=== PATIENT | female | born 1950 | race Caucasian/White ===

== ENCOUNTER → 2017-09-27 | Outpatient (CLI) | payer OTHER, MEDICARE | LOC: BMCIMAGING 09:58 | PROVIDERS: ATTEND Physician Assistant | DX: M25.851 Other specified joint disorders, right hip (principal); M16.11 Unilateral primary osteoarthritis, right hip ==

== ENCOUNTER → 2017-10-01 | Outpatient (CLI) | payer OTHER | LOC: FIMAGING 11:49 | PROVIDERS: ATTEND Orthopaedic Surgery | DX: Z01.818 Encounter for other preprocedural examination (principal); M16.0 Bilateral primary osteoarthritis of hip; M17.0 Bilateral primary osteoarthritis of knee; M47.897 Other spondylosis, lumbosacral region; M48.07 Spinal stenosis, lumbosacral region ==

== ENCOUNTER 2017-10-12 06:15 | Inpatient (IN) | payer OTHER, MEDICARE ==
[~2017-10-12 06:15] MED LIST: ROPIVACAINE 0.2% 80 MG, EPINEPHrine 0.2 MG, KETOROLAC TROMETHAMINE 30 MG, morphINE 10 M... IU ONE; TRANEXAMIC ACID 1,500 MG in NS 100 ML IV ONE
[2017-10-12] MEDS ORDERED: FAMOTIDINE 20 MG TAB PO ONE (06:28)
[2017-10-12] MEDS ORDERED: ACETAMINOPHEN 325 MG TAB PO ONE (06:28)
[2017-10-12] MEDS ORDERED: ceFAZolin 2 GM/SWFI 2 GM/20 ML SYR IVP ONE (06:28)
[2017-10-12] MEDS ORDERED: LR 1,000 ML IV ONE (06:29)
[2017-10-12] MEDS ORDERED: LIDOCAINE 1% 2 ML INJ ID PRN (06:29)
--- NOTE | 2017-10-12 06:50 | PDHPUP ---
History & Physical Update H&P update statement: This history and physical update is based on an assessment of the patient which was completed after admission or registration (within 24 hours), but prior to the surgery/procedure.
--- NOTE | 2017-10-12 06:51 | PDIAF ---
- Diagnosis Diagnosis: left hip djd Code Status: Full Code - Medication Management Discharge Medications: Medications to Continue on Transfer Gabapentin [Neurontin 100 MG (*)] 100 mg PO HS 09/29/17 [Last Taken Unknown] Herbals/Supplements -Info Only 1 ea PO DAILY 09/29/17 [Last Taken Unknown] Ibuprofen [Motrin (*)] 200 mg PO DAILY PRN 09/29/17 [Last Taken 10/07/17] Omeprazole [Prilosec 20 mg] 20 mg PO DAILY 09/29/17 [Last Taken 10/11/17] Discharge Medications: Refer to the Discharge Home Medication list for PRN reason. - Orders Services needed: Physical Therapy Diet Recommendation: no restrictions on diet Diet Texture: Regular Texture Diet Activity/Weight Bearing Restrictions: wbat. rom as tolerated, anterior hip precautions. daily dressing changes. no soaking or immersion. lawrence hose x 2 weeks. aspirin 325 mg po daily for six weeks. seek attn for increasing pain, cp, sob, leg swelling or pain. f/u at two weeks as scheduled - Follow Up Care Current Providers and Referrals: Michael Toscano MD [Primary Care Provider] -
[2017-10-12] MEDS ORDERED: ceFAZolin 1 GM/5 ML SYR ONE ×2 (08:05→10:16)
[2017-10-12] MEDS ORDERED: MIDAZOLAM 2 MG/2 ML VIAL IVP ONE (08:28)
--- NOTE | 2017-10-12 08:28 | PDANEPAE ---
ANE Past Medical History - Cardiovascular History Hx Hypertension: No Hx Arrhythmias: No Hx Chest Pain: No Hx Coronary Artery / Peripheral Vascular Disease: No Hx CHF / Valvular Disease: No Hx Palpitations: No - Pulmonary History Hx COPD: No Hx Asthma/Reactive Airway Disease: No Hx Recent Upper Respiratory Infection: No Hx Oxygen in Use at Home: No Hx Sleep Apnea: No Sleep Apnea Screening Result - Last Documented: Negative - Neurologic History Hx Cerebrovascular Accident: No Hx Seizures: No Hx Dementia: No - Endocrine History Hx Diabetes: No Obesity: mild - Renal History Hx Renal Disorders: No - Liver History Hx Hepatic Disorders: No - Neurological & Psychiatric Hx Hx Neurological and Psychiatric Disorders: No - Cancer History Hx Cancer: No - Congenital Disorder History Hx Congenital Disorders: No - GI History Hx Gastrointestinal Disorders: No Gastrointestinal History Comment: GERD - Other Health History Other Health History: NEG - Chronic Pain History Chronic Pain: Yes (R HIP PAIN & LOW BACK PAIN) - Surgical History Prior Surgeries: SCOPE R THUMB. ORAL SURGERY. BREAST AUGMENTATION ANE Review of Systems Review of Systems: - Exercise capacity METS (RN): 5 METS ANE Patient History - Allergies Allergies/Adverse Reactions: No Known Allergies Allergy (Unverified 09/29/17 11:50) - Home Medications Home Medications: Gabapentin [Neurontin 100 MG (*)] 100 mg PO HS 09/29/17 [Last Taken Unknown] Herbals/Supplements -Info Only 1 ea PO DAILY 09/29/17 [Last Taken Unknown] Ibuprofen [Motrin (*)] 200 mg PO DAILY PRN 09/29/17 [Last Taken 10/07/17] Omeprazole [Prilosec 20 mg] 20 mg PO DAILY 09/29/17 [Last Taken 10/11/17] - NPO status NPO Since - Liquids (Date): 10/12/17 NPO Since - Liquids (Time): 05:30 NPO Since - Solids (Date): 10/11/17 NPO Since - Solids (Time): 18:00 - Smoking Hx Smoking Status: Former smoker - Family Anes Hx Family Hx Anesthesia Complications: NEG ANE Labs/Vital Signs - Vital Signs Blood Pressure: 117/83 Heart Rate: 71 Respiratory Rate: 16 O2 Sat (%): 92 Height: 170.18 cm Weight: 74.843 kg ANE Physical Exam - Airway Neck exam: FROM Mallampati Score: Class 2 Mouth exam: normal dental/mouth exam - Pulmonary Pulmonary: no respiratory distress - Cardiovascular Cardiovascular: regular rate and rhythym - ASA Status ASA Status: II ANE Anesthesia Plan Anesthesia Plan: spinal
[2017-10-12] MEDS ORDERED: fentaNYL 100 MCG/2 ML INJ ONE (08:35)
[2017-10-12] MEDS ORDERED: PROPOFOL/EMULSION 500 MG/50 ML BOTTLE IV ONE (08:55)
[2017-10-12] MEDS ORDERED: MIDAZOLAM 2 MG/2 ML VIAL ONE (09:17)
[2017-10-12] MEDS ORDERED: PROPOFOL 200 MG/20 ML VIAL ONE (09:21)
[2017-10-12] MEDS ORDERED: GLYCOPYRROLATE 0.2 MG/1 ML VIAL ONE ×2 (09:27)
[2017-10-12] MEDS ORDERED: ROCURONIUM 50 MG/5 ML VIAL ONE (10:31)
[2017-10-12] MEDS ORDERED: PHENYLEPHRINE HCL 100 MCG/ML SYR ONE (10:31)
[2017-10-12] MEDS ORDERED: SUGAMMADEX SODIUM 200 MG/2 ML VIAL IVP ONE (10:31)
[2017-10-12] MEDS ORDERED: diphenhydrAMINE 25 MG CAP PO PRN (10:42)
[2017-10-12] MEDS ORDERED: ONDANSETRON 4 MG/2 ML VIAL IVP PRN ×2 (10:42→11:38)
[2017-10-12] MEDS ORDERED: TEMAZEPAM 15 MG CAP PO PRN (10:42)
[2017-10-12] MEDS ORDERED: METOCLOPRAMIDE 10 MG/2 ML VIAL IVP PRN (10:42)
[2017-10-12] MEDS ORDERED: POLYETHYLENE GLYCOL 3350 17 GM PKT PO PRN (10:42)
[2017-10-12] MEDS ORDERED: PROMETHAZINE HCL 25 MG/ML INJ IVP PRN (10:42)
[2017-10-12] MEDS ORDERED: BISACODYL 10 MG SUPP PR PRN (10:42)
[2017-10-12] MEDS ORDERED: MAGNESIUM HYDROXIDE 30 ML UDCUP PO PRN (10:42)
[2017-10-12] MEDS ORDERED: PROMETHAZINE HCL 25 MG SUPPR PR PRN (10:42)
[2017-10-12] MEDS ORDERED: ONDANSETRON DISINTEGRATING 4 MG TAB PO PRN (10:42)
[2017-10-12] MEDS ORDERED: LACTULOSE 20 GM/30 ML UDCUP PO PRN (10:42)
[2017-10-12] MEDS ORDERED: DIPHENOXYLATE/ATROPINE LOMOTIL 1 TAB PO PRN (10:42)
[2017-10-12] MEDS ORDERED: LR 1,000 ML IV SCH (11:00)
[2017-10-12] MEDS ORDERED: NALOXONE HCL 0.4 MG/ML INJ IVP PRN (11:38)
[2017-10-12] MEDS ORDERED: fentaNYL 100 MCG/2 ML INJ IVP PRN (11:38)
--- NOTE | 2017-10-12 11:40 | POSTANESTH ---
Post Anesthetic Evaluation Cardiovascular Status: Normal, Stable Respiratory Status: Normal, Stable Level of Consciousness/Mental Status: Can Participate in Eval Pain Control: Adequate, Prn Tx Ordered Nausea/Vomiting Control: Adequate, Prn Tx Ordered Complications Possibly Related to Anesthesia: None Noted
[2017-10-12] MEDS: TRANEXAMIC ACID 650 MG TAB PO SCH ×4 (11:56→18:08)
[2017-10-12] MEDS: ACETAMINOPHEN 325 MG TAB PO SCH ×2 (12:24→17:00)
[2017-10-12] MEDS: DIAZEPAM 5 MG TAB PO PRN (12:50)
[2017-10-12] MEDS ORDERED: ceFAZolin 2 GM/DEXTROSE 100 ML IV SCH (14:00)
[2017-10-12] MEDS: oxyCODONE IR 5 MG TAB PO PRN ×3 (14:11→21:25)
--- NOTE | 2017-10-12 15:36 | ASMTCMCOM ---
CM Note CM Note Notes: Pt is s/p L JAMIE. PT/OT evals pending. Pt lives with her in [place]. CM will follow for any d/c needs. Date Signed: 10/12/2017 03:35 PM Electronically Signed By:KATHRYN Polanco
[2017-10-12] MEDS: ceFAZolin 2 GM/SWFI 2 GM/20 ML SYR IVP SCH (17:02)
[2017-10-12] MEDS ORDERED: GABAPENTIN 100 MG CAP PO SCH (21:00)
[2017-10-12] MEDS: ASPIRIN 325 MG TAB PO SCH (21:02)
[2017-10-12] MEDS: FAMOTIDINE 20 MG TAB PO SCH (21:02)
[2017-10-12] MEDS: SENNOSIDES/DOCUSATE SODIUM TAB PO SCH (21:02)
[2017-10-13] MEDS: ACETAMINOPHEN 325 MG TAB PO SCH ×2 (00:45→05:13)
[2017-10-13] MEDS: ceFAZolin 2 GM/SWFI 2 GM/20 ML SYR IVP SCH (00:45)
[2017-10-13] MEDS: DIAZEPAM 5 MG TAB PO PRN ×2 (00:52→08:35)
[2017-10-13] MEDS ORDERED: TRANEXAMIC ACID 650 MG TAB PO ONE (05:08)
[2017-10-13] MEDS: TRANEXAMIC ACID 650 MG TAB PO SCH (05:12)
--- NOTE | 2017-10-13 06:27 | PDIAF ---
- Diagnosis Diagnosis: left hip djd Code Status: Full Code - Medication Management Discharge Medications: Medications to Continue on Transfer Gabapentin [Neurontin 100 MG (*)] 100 mg PO HS 09/29/17 [Last Taken Unknown] Herbals/Supplements -Info Only 1 ea PO DAILY 09/29/17 [Last Taken Unknown] Omeprazole [Prilosec 20 mg] 20 mg PO DAILY 09/29/17 [Last Taken 10/11/17] Aspirin [Aspirin 325 mg (*)] 325 mg PO DAILY tab 10/13/17 [Last Taken Unknown] Diazepam [Valium 5 MG (*)] 5 mg PO Q6HRS PRN #40 tab 10/13/17 [Last Taken Unknown] oxyCODONE IR [Oxycodone Ir (*)] 5 - 10 mg PO Q3HRS PRN #70 tab 10/13/17 [Last Taken Unknown] Discharge Medications: Refer to the Discharge Home Medication list for PRN reason. - Orders Services needed: Physical Therapy Diet Recommendation: no restrictions on diet Diet Texture: Regular Texture Diet Activity/Weight Bearing Restrictions: wbat. rom as tolerated, anterior hip precautions. daily dressing changes. no soaking or immersion. lawrence hose x 2 weeks. aspirin 325 mg po daily for six weeks. seek attn for increasing pain, cp, sob, leg swelling or pain. f/u at two weeks as scheduled - Follow Up Care Current Providers and Referrals: Michael Toscano MD [Primary Care Provider] - Juan Antonio Nelson MD [Medical Doctor] -
--- NOTE | 2017-10-13 06:29 | SOAPPROG ---
SOAP Progress Note Assessment/Plan: Assessment: s/p radha Plan:dvt precautions reviewed d/c home after cleared by pt seek attn for increasing pain or complaints 10/13/17 06:27 Subjective: not sleeping well occ sharp pains stable currently no cp or sob Objective: Vital Signs Temp Pulse Resp BP Pulse Ox 36.8 C 65 16 101/59 L 95 10/13/17 04:00 10/13/17 04:00 10/13/17 04:00 10/13/17 05:30 10/13/17 04:00 Laboratory Results 10/13/17 05:02 10/12/17 10/13/17 10/14/17 05:59 05:59 05:59 Intake Total 1850 Output Total 1000 Balance 850 dressing intact intact pf,df,ehl neg homans belinda xrasy stable alignment and reduction ICD10 Worksheet Patient Problems: Problems Problem Status Onset Hip arthritis Acute Hip arthritis Acute - ICD10 Problem Qualifiers (1) Hip arthritis (2) Hip arthritis
[2017-10-13] MEDS: FAMOTIDINE 20 MG TAB PO SCH (08:35)
[2017-10-13] MEDS: ASPIRIN 325 MG TAB PO SCH (08:36)
[2017-10-13] MEDS: SENNOSIDES/DOCUSATE SODIUM TAB PO SCH (08:36)
[2017-10-13 08:37] VITALS: BP 98/52; PULSE 69; RESP 20; TEMP 98.3; O2SAT 91
[2017-10-13] MEDS ORDERED: PANTOPRAZOLE SODIUM 40 MG TAB PO SCH (09:00)
[2017-10-13] MEDS ORDERED: PNEUMOC 13-VAL CONJ-DIP CRM/PF 0.5 ML SYR IM ONE (09:35)
[2017-10-13] MEDS: oxyCODONE IR 5 MG TAB PO PRN (10:10)
--- NOTE | 2017-10-13 14:34 | ASMTCMCOM ---
CM Note CM Note Notes: Pt medically stable for d/c w [facility] RN, [facility] Pt will have support of sister and . Date Signed: 10/13/2017 02:33 PM Electronically Signed By:KATHRYN Carlos
--- NOTE | 2017-10-13 15:20 | ASDISCHSUM ---
Discharge Information Plan Status:Home with Home Health Medically Cleared to Leave: Discharge Date:10/13/2017 02:41 PM CM D/C Disposition:Home Health Service ADT D/C Disposition:Home Health Service Projected Discharge Date:10/13/2017 11:00 AM Transportation at D/C:Family Discharge Delay Reason: Follow-Up Date:10/13/2017 11:00 AM Discharge Slot: Final Diagnosis: Placement Information Referral Type:*Home Health Care Services Referral ID:[facility]-[id number] Provider Name:[facility] Address 1[address] Address 2: City:[place] Selection Factors: State:[place] Patient Contact Information Contact Name:ALOK Relationship: Address:[address] Work Phone: City:[place] Alternate Phone: State/Zip Code:[place] [address] Email: Financial Information Financial Class: Primary Plan Desc:MEDICARE INPATIENT Primary Plan Number:[id number] Secondary Plan Desc:[employer]/MDR SUPPLEMENT Secondary Plan Number:[id number] Assessment Information [facility] CM Progress Note CM Note CM Note Notes: Pt is s/p L JAMIE. PT/OT evals pending. Pt lives with her in [place]. CM will follow for any d/c needs. Date Signed: 10/12/2017 03:35 PM Electronically Signed By:KATHRYN Polanco [facility] CM Progress Note CM Note CM Note Notes: Pt medically stable for d/c w [facility] RN, orders to be obtained in [place]. Pt will have support of sister and . Date Signed: 10/13/2017 02:33 PM Electronically Signed By:KATHRYN Carlos Intervention Information
--- NOTE | 2017-10-15 13:30 | GDS ---
[f rep st] DISCHARGE SUMMARY ADMISSION DIAGNOSIS: Left hip degenerative joint disease. DISCHARGE DIAGNOSIS: Left hip degenerative joint disease. PROCEDURE: Left total hip arthroplasty-anterior. OPERATIVE INDICATIONS: The patient is a 66-year-old woman with end-stage arthritis to her left hip. Clinical and radiographic features are consistent with this. She has failed all attempts at conserv ative management. I have therefore recommended operative intervention with total hip replacement. HOSPITAL COURSE: The patient was admitted to the hospital floor after uncomplicated total hip arthro plasty. She tolerated the procedure well. She had no postoperative complications. At the time of d ischarge, she is tolerating an oral diet. Pain was well controlled on oral medicines. She is voidin g and stooling without difficulty. Dressing is clean, dry, and intact. She has negative Homans x-ra ys are stable with anatomic alignment. DISCHARGE ACTIVITY: She is weightbearing as tolerated. Anterior hip precautions. Daily dressing ch anges. No soaking or immersion but may shower. DISCHARGE MEDICATIONS: Valium and oxycodone. FOLLOWUP: 2 weeks. Seek attention for increasing redness, swelling, drainage, discharge. /[id number]/MODL
--- NOTE | 2017-10-15 13:55 | GOP ---
[f rep st] OPERATIVE REPORT DATE OF OPERATION: 10/12/2017 SURGEON: Juan Antonio Nelson MD HISTOLOGIC AIDE: Michael Eid, MOLD SWABBER, [facility], who was medical necessity for the entirety of the case. PREOPERATIVE DIAGNOSIS: Left hip degenerative joint disease. POSTOPERATIVE DIAGNOSIS: Left hip degenerative joint disease. PROCEDURE PERFORMED: Left total hip arthroplasty. FINDINGS: SPECIMENS: To Pathology, the femoral head. ESTIMATED BLOOD LOSS: 300 cc. INDICATIONS: Kamilla is a 66-year-old woman with end-stage arthritis to her left hip. Clinical and r adiographic features are consistent with this. I have recommended operative intervention for total h ip replacement. I have outlined the surgical procedure, risks, benefits, and alternatives. She wish ed to proceed. Written consent was signed and placed in the patient's chart. DESCRIPTION OF PROCEDURE: The patient was identified in the preanesthesia area, the left hip clearly demarcated as the operative site with indelible marker. She was given 2 g Ancef intravenously en ro edmund to the operative suite. In the OR, she was placed in the supine position. A spinal anesthetic w as placed, followed by sedation, and ultimately endotracheal intubation. Appropriate timeout procedu re was carried out. Attention was then 1st turned to the right hemipelvis. A 2 cm incision was made over the iliac crest. 3 pins were then placed for the pelvic reference array. Attention was then t urned to the left hip. An anterior approach was made. Thick subcutaneous flaps were elevated. The fascia of the tensor was opened in a linear fashion. The tensor was retracted laterally. The underl estefania vascular structures were identified and transected. The rectus was elevated off the anterior ca psule. Retractors were placed in an extracapsular position. A T-capsulotomy was made. A pelvic ana m tabular checkpoint was then placed. A bony wedge was withdrawn from the femoral neck followed by the femoral head. There were gross bony changes consistent with arthritis. The remnants of the soft ti ssue of the labrum and surrounding hip were then sharply incised. The bony landmarks of the hip were then entered into the computer in standard fashion, and using the BitcastOplasty robot, a 54 mm reamer w as placed in an opening angle of 40 degrees and anteversion of 20 degrees to the appropriate depths. A titanium acetabular shell was then placed across the same area and confirmed to be fully seated. A 0-degree X3 liner was then placed. Attention was then turned to the femur. This was delivered wit h the use of soft tissue releases, extension of the table. Proximal canal was opened and serial broa eyal carried out to a size 6 stem. This was confirmed under fluoroscopic evaluation. Trial reducti on was carried out, and ultimately a 36 mm +0 mm neck length was selected. The trial components were withdrawn. A size 6 stem was then placed and confirmed to be fully seated. This was once again con firmed under fluoroscopic evaluation. A 36 mm +0 mm neck length Biologic head was then attached to t he cleansed trunnion. The hip was copiously irrigated and reduced. This allowed mu-ism of leg lengths, full range of motion, and stability with external rotation to 90 degrees in full extension w ithout instability. The wound was then copiously irrigated, closed in layers using 0 Vicryl, 2-0 Mon ocryl, and philip. The margins and incisions were instilled with 30 cc 0.5% Marcaine with epinephri ne and a joint cocktail mixture of ropivacaine, Toradol, and epinephrine. A sterile dressing was felicity lied. The patient was awakened, extubated, taken to recovery in good stable condition. TOTAL TOURNIQUET TIME: None. COMPLICATIONS: None. IMPLANTS: Adelso Tritanium acetabular shell, size 54 mm; Trident X3 0-degree polyethylene insert, 3 6 mm; Biolox delta ceramic head, 36 mm +0 mm neck length; Accolade 227-degree neck angle hip stem, si ze 6. DISPOSITION: To the recovery room and then the floor. She will follow standard weightbearing as tyler erated and anterior hip precautions. /[id number]/MODL
== END 2017-10-13 14:41 | disposition home health service (06) | DRG 470 ==
LOC: F3N 06:15
PROVIDERS: ADMIT Orthopaedic Surgery; ATTEND Orthopaedic Surgery
PROC: 8E0Y0CZ Robotic Assisted Procedure of Lower Extremity, Open Approach (ICD-10-PCS; principal; 2017-10-12 09:15)
PROC: 0SRB04Z Replacement of Left Hip Joint with Ceramic on Polyethylene Synthetic Substitute, Open Approach (ICD-10-PCS; principal; 2017-10-12 09:15)
DX: M16.12 Unilateral primary osteoarthritis, left hip (principal); B18.2 Chronic viral hepatitis C; E78.00 Pure hypercholesterolemia, unspecified; Z79.890 Hormone replacement therapy; Z23 Encounter for immunization
CPT/HCPCS: 97110-GP; 97116-GP; 97161-GP; 97165-GO; 97535-GO; G0009; G8978-GP-CJ; G8979-GP-CI; G8987-GO-CI; G8988-GO-CI; G8989-GO-CI; J0171; J0690; J1200; J1885; J2250; J2370; J2405; J2704; J2795; J3010

== ENCOUNTER → 2017-11-24 | Outpatient (CLI) | payer OTHER, MEDICARE | LOC: BMCIMAGING 13:48 | PROVIDERS: ATTEND Physician Assistant | DX: Z47.1 Aftercare following joint replacement surgery (principal); Z96.642 Presence of left artificial hip joint; M16.11 Unilateral primary osteoarthritis, right hip; M47.816 Spondylosis without myelopathy or radiculopathy, lumbar region; M41.86 Other forms of scoliosis, lumbar region; M43.16 Spondylolisthesis, lumbar region ==

== ENCOUNTER → 2018-12-21 | Outpatient (CLI) | payer OTHER, MEDICARE | LOC: BMCIMAGING 08:16 | PROVIDERS: ATTEND Orthopaedic Surgery | DX: M16.11 Unilateral primary osteoarthritis, right hip (principal) ==

== ENCOUNTER → 2018-12-27 | Outpatient (CLI) | payer OTHER, MEDICARE | LOC: FIMAGING 11:30 | PROVIDERS: ATTEND Orthopaedic Surgery | DX: M16.11 Unilateral primary osteoarthritis, right hip (principal) ==

== ENCOUNTER 2019-02-06 08:33 | Inpatient (IN) | payer OTHER, MEDICARE ==
--- NOTE | 2019-02-06 06:12 | PDHPUP ---
History & Physical Update H&P update statement: This history and physical update is based on an assessment of the patient which was completed after admission or registration (within 24 hours), but prior to the surgery/procedure. H&P update: no change in patient's condition since H&P completed
--- NOTE | 2019-02-06 06:13 | PDIAF ---
- Diagnosis Diagnosis: right hip djd Code Status: Full Code - Medication Management Discharge Medications: electronically signed and located in the Home Medication List. - Orders Services needed: Home Care, Physical Therapy Home Care Face to Face: I certify that this patient was under my care and that I had the required [id number] encounter meeting the encounter requirements on the discharge day. My findings support the fact that the patient is homebound as defined in Home Care Face to Face Continued: CMS Chapter 7 Medicare Benefits Manual 30.1.1 , The condition of the patient is such that there exists a normal inability to leave home and consequently, leaving home would require a considerable and taxing effort. Diet Recommendation: no restrictions on diet Diet Texture: Regular Texture Diet Additional Instructions: TOTAL JOINT ARTHROPLASTY DISCHARGE INSTRUCTIONS 1. Your surgeon follows the [facility] protocol for reducing your risk of DVT (blood clots) following surgery. Medication will be ordered to prevent blood clots. A sudden increase in calf pain and/or swelling could indicate a blood clot in your leg. If this occurs, please call your surgeon or his/her conference assistant. An ultrasound of the leg may be necessary to diagnose a blood clot. If you have conditions that make you a higher risk for blood clots, your surgeon may use more aggressive ways to prevent them. Notify your surgeon if you think you are a high risk for blood clots. 2. Wear your white surgical stockings (ALBERT hose) for 2 weeks. This decreases your swelling and may help prevent blood clots. It is ok to remove ALBERT hose at night time to give your legs a break. 3. Swelling and bruising in the surgical leg is common. If you feel that it is excessive, please notify your surgeon. 4. Elevate your surgical leg with the ankle above the hip several times every day. Please keep the leg straight when you elevate by putting pillows under your foot. Do not put pillows under your knee. This will make being able to fully straighten more difficult. This is uncomfortable, but try to do it as much as possible. 5. For total knee replacements use compressive wrap on your knee for 3-5 days after surgery, then you can discontinue it. 6. Use a walker or crutches for 1-2 weeks. Progress your weight-bearing as tolerated. You may start to use a cane when you feel stable and safe. 7. You will receive physical therapy instructions in the hospital. Continue those exercises at home. There are additional exercises in the total joint booklet you were given before surgery. Outpatient physical therapy will begin 7- 10 days after surgery. Please schedule this in advance. 8. Use ice on your knee at least 3-5 times every day for 30 minutes. This helps reduce pain and swelling. Also use it at night before falling asleep. 9. Leave your surgical dressing in place for 2 weeks. Your dressing is water resistant, but not waterproof. Cover it with Saran Wrap or Prvii-o-Wmwt before showering. You may shower as soon as you feel safe entering a shower. If you notice bleeding from your incision 2 or 3 days after surgery, please notify your surgeon. 10. Due to narcotics, decreased activity and altered diet, most patients experience constipation after surgery. Use euhk-rxy-plisdeh stool softeners while you are on narcotics. 11. You may drive a car when you are comfortable bearing weight, have good muscular control of your leg and are off narcotics. This usually occurs 2-4 weeks after surgery, depending on which leg was operated on. 12. If there are questions not addressed here, please refer the [facility] book given for more information. If you still have questions, please contact your surgeon s office. 13. If you have a life-threatening emergency, please call 911 and go to the emergency room immediately. For non-life threatening emergencies, please call your physicians office for advice before going to the emergency room. - Follow Up Care Current Providers and Referrals: Michael Toscano MD [Primary Care Provider] - Juan Antonio Nelson MD [Medical Doctor] -
[~2019-02-06 08:33] MED LIST changes: +ROPIVACAINE 0.2% 80 MG, EPINEPHrine 0.2 MG, KETOROLAC TROMETHAMINE 30 MG in SYRINGE 0 ML IU ONE; -ROPIVACAINE 0.2% 80 MG, EPINEPHrine 0.2 MG, KETOROLAC TROMETHAMINE 30 MG, morphINE 10 M... IU ONE; +TRANEXAMIC ACID 1,000 MG in NS 100 ML IV ONE; -TRANEXAMIC ACID 1,500 MG in NS 100 ML IV ONE
[2019-02-06] MEDS ORDERED: ACETAMINOPHEN 325 MG TAB PO ONE (08:57)
[2019-02-06] MEDS ORDERED: LIDOCAINE 1% 2 ML INJ ID PRN (08:57)
[2019-02-06] MEDS ORDERED: FAMOTIDINE 20 MG TAB PO ONE (08:57)
[2019-02-06] MEDS ORDERED: ceFAZolin 2 GM/DEXTROSE 100 ML IV ONE (08:57)
[2019-02-06] MEDS ORDERED: LR 1,000 ML IV ONE (08:57)
[2019-02-06] MEDS ORDERED: ceFAZolin 1 GM/5 ML SYR ONE (09:32)
--- NOTE | 2019-02-06 09:45 | PDANEPAE ---
ANE History of Present Illness here for JAMIE ANE Past Medical History - Cardiovascular History Hx Hypertension: No Hx Arrhythmias: No Hx Chest Pain: No Hx Coronary Artery / Peripheral Vascular Disease: No Hx CHF / Valvular Disease: No Hx Palpitations: No - Pulmonary History Hx COPD: No Hx Asthma/Reactive Airway Disease: No Hx Recent Upper Respiratory Infection: No Hx Oxygen in Use at Home: No Hx Sleep Apnea: No Sleep Apnea Screening Result - Last Documented: Negative - Neurologic History Hx Cerebrovascular Accident: No Hx Seizures: No Hx Dementia: No - Endocrine History Hx Diabetes: No - Renal History Hx Renal Disorders: No - Liver History Hx Hepatic Disorders: No - Neurological & Psychiatric Hx Hx Neurological and Psychiatric Disorders: No - Cancer History Hx Cancer: No - Congenital Disorder History Hx Congenital Disorders: No - GI History Hx Gastrointestinal Disorders: Yes Gastrointestinal History Comment: GERD - Other Health History Other Health History: none - Chronic Pain History Chronic Pain: Yes (right hip) - Surgical History Prior Surgeries: 10/12/17 Left JAMIE with Repine. SCOPE R THUMB. ORAL SURGERY. BREAST AUGMENTATION ANE Review of Systems Review of systems is: negative Review of Systems: - Exercise capacity Exercise capacity: >=4 METS METS (RN): 4 METS ANE Patient History - Allergies Allergies/Adverse Reactions: codeine Allergy (Verified 01/23/19 11:00) Vomiting - Home Medications Home medications: home medication list seen and reviewed Home Medications: Ibuprofen [Motrin (*)] 200 mg PO DAILY PRN 01/18/19 [Last Taken 01/30/19] Omeprazole-Bicarb 20-1,100 Cap 02/06/19 [Last Taken 02/02/19] - NPO status NPO Status: no food or drink >8 hours NPO Since - Liquids (Date): 02/05/19 NPO Since - Liquids (Time): 17:00 NPO Since - Solids (Date): 02/05/19 NPO Since - Solids (Time): 17:00 - Anes Hx Anes Hx: no prior problems - Smoking Hx Smoking Status: Former smoker - Family Anes Hx Family Hx Anesthesia Complications: none ANE Labs/Vital Signs - Vital Signs Vital Signs: reviewed preoperatively; see RN documention for details Blood Pressure: 134/84 Heart Rate: 66 Respiratory Rate: 17 O2 Sat (%): 94 Height: 170.18 cm Weight: 81.647 kg ANE Physical Exam - Airway Neck exam: FROM Mallampati Score: Class 1 Mouth exam: normal dental/mouth exam - Pulmonary Pulmonary: no respiratory distress - Cardiovascular Cardiovascular: regular rate and rhythym - ASA Status ASA Status: II ANE Anesthesia Plan Anesthesia Plan: MAC, spinal
[2019-02-06] MEDS ORDERED: MIDAZOLAM 2 MG/2 ML VIAL ONE (10:09)
[2019-02-06] MEDS ORDERED: MIDAZOLAM 2 MG/2 ML VIAL IVP ONE (10:11)
[2019-02-06] MEDS ORDERED: BUPIVACAINE 0.5% 30 ML SDV ONE (10:19)
[2019-02-06] MEDS ORDERED: fentaNYL 100 MCG/2 ML INJ ONE (10:20)
[2019-02-06] MEDS ORDERED: PROPOFOL/EMULSION 500 MG/50 ML BOTTLE IV ONE (10:20)
[2019-02-06] MEDS ORDERED: PROPOFOL 200 MG/20 ML VIAL ONE ×3 (11:25→12:16)
[2019-02-06] MEDS ORDERED: fentaNYL 100 MCG/2 ML INJ IVP PRN (11:30)
[2019-02-06] MEDS ORDERED: ALBUTEROL 3 ML DEYVIAL IH PRN (11:30)
[2019-02-06] MEDS ORDERED: NALOXONE HCL 0.4 MG/ML INJ IVP PRN (11:30)
[2019-02-06] MEDS ORDERED: HYDROmorphONE/DILAUDID 1 MG/ML INJ IVP PRN (11:30)
[2019-02-06] MEDS ORDERED: LR 500 ML IV PRN (11:30)
[2019-02-06] MEDS ORDERED: NS 500 ML IV PRN (11:30)
[2019-02-06] MEDS ORDERED: ONDANSETRON 4 MG/2 ML VIAL IVP PRN (11:30)
[2019-02-06] MEDS ORDERED: DEXAMETHASONE 4 MG/ML VIAL IVP PRN (11:30)
[2019-02-06] MEDS ORDERED: PROMETHAZINE HCL 25 MG SUPPR PR PRN (12:26)
[2019-02-06] MEDS ORDERED: METOCLOPRAMIDE 10 MG/2 ML VIAL IVP PRN (12:26)
[2019-02-06] MEDS ORDERED: MAGNESIUM HYDROXIDE 30 ML UDCUP PO PRN (12:26)
[2019-02-06] MEDS ORDERED: POLYETHYLENE GLYCOL 3350 17 GM PKT PO PRN (12:26)
[2019-02-06] MEDS ORDERED: CYCLOBENZAPRINE 10 MG TAB PO PRN (12:26)
[2019-02-06] MEDS ORDERED: BISACODYL 10 MG SUPP PR PRN (12:26)
[2019-02-06] MEDS ORDERED: TEMAZEPAM 15 MG CAP PO PRN (12:26)
[2019-02-06] MEDS ORDERED: PROMETHAZINE HCL 25 MG/ML INJ IVP PRN (12:26)
[2019-02-06] MEDS ORDERED: diphenhydrAMINE 25 MG CAP PO PRN (12:26)
[2019-02-06] MEDS ORDERED: DIPHENOXYLATE/ATROPINE LOMOTIL 1 TAB PO PRN (12:26)
[2019-02-06] MEDS ORDERED: LACTULOSE 20 GM/30 ML UDCUP PO PRN (12:26)
--- NOTE | 2019-02-06 12:26 | POSTOPPROG ---
Post Op Note Date of Operation: 02/06/19 Surgeon: Juan Antonio Nelson Envelope Maker: Stanton Anesthesiologist: Beau Anesthesia: Spinal Pre-op Diagnosis: Right hip OA Post-op Diagnosis: Right hip OA Indication: Right hip OA Procedure: Right total hip arthroplasty, anterior approach, MAKOplasty robotic assist Findings: Right hip OA Inf/Abcess present in the surg proc area at time of surgery?: No Depth: Deep Incisional (Fascial) EBL: 100-500 Drains: Dayday Vázquez
[2019-02-06] MEDS ORDERED: LR 1,000 ML IV SCH (12:30)
[2019-02-06] MEDS ORDERED: ONDANSETRON 4 MG/2 ML VIAL ONE (13:37)
[2019-02-06] MEDS ORDERED: oxyCODONE IR 5 MG TAB ONE (13:37)
[2019-02-06] MEDS: oxyCODONE IR 5 MG TAB PO PRN ×3 (13:50→21:55)
--- NOTE | 2019-02-06 14:49 | PDMN ---
Medical Necessity Medical necessity: [facility] S560 Hip Arthroplasty, A-2 days: 68 yo s/p R JAMIE, [facility] IP only
--- NOTE | 2019-02-06 15:28 | SOAPPROG ---
SOAP Progress Note Assessment/Plan: Assessment: s/p right JAMIE anterior approach, BARRON assist Plan: Begin d/c planning - likely discharge home tomorrow, will have support from and sister WBAT ROM as tolerated, anterior total hip precautions Home PT with buyer planner DVT precautions reviewed - aspirin 81 mg BID, ALBERT hose F/U at two weeks Seek attention for increasing pain, swelling or other focal complaint Subjective: Patient complains of mild pain. States there is no chest pain or shortness of breath. Patient tolerating oral pain medication and oral diet. She would like a script for Celebrex when she leaves the hospital. She notes less numbness and tingling into her feet and legs. Objective: Vital Signs Temp Pulse Resp BP Pulse Ox 35.8 C L 72 16 92/48 L 94 02/06/19 14:36 02/06/19 14:36 02/06/19 14:36 02/06/19 14:36 02/06/19 14:36 02/05/19 02/06/19 02/07/19 05:59 05:59 05:59 Intake Total 1700 Output Total 210 Balance 1490 RLE: AMBAR drain in place. Dressing is clean, dry, intact. Intact PF, DF, EHL. Toes are warm and pink. Negative Homans bilaterally. X-rays reveal stable anatomic alignment, no fracture or lucency. ICD10 Worksheet Patient Problems: Problems Problem Status Onset Unilateral primary osteoarthritis, right hip Acute Hip arthritis Acute Hip arthritis Acute
[2019-02-06] MEDS: TRANEXAMIC ACID 650 MG TAB PO SCH ×2 (16:57→21:31)
[2019-02-06] MEDS: ACETAMINOPHEN 325 MG TAB PO SCH (18:22)
[2019-02-06] MEDS: ceFAZolin 2 GM/DEXTROSE 100 ML IV SCH (19:43)
[2019-02-06] MEDS: ASPIRIN 81 MG CHEWABLE TAB PO SCH (21:29)
[2019-02-06] MEDS: FAMOTIDINE 20 MG TAB PO SCH (21:30)
[2019-02-06] MEDS: SENNOSIDES/DOCUSATE SODIUM TAB PO SCH (21:30)
[2019-02-06] MEDS: ONDANSETRON 4 MG/2 ML VIAL IVP PRN (21:51)
[2019-02-07] MEDS: ACETAMINOPHEN 325 MG TAB PO SCH ×3 (00:26→14:49)
[2019-02-07] MEDS: ceFAZolin 2 GM/DEXTROSE 100 ML IV SCH (04:19)
[2019-02-07] MEDS: oxyCODONE IR 5 MG TAB PO PRN ×2 (04:27→09:01)
[2019-02-07] MEDS: ONDANSETRON DISINTEGRATING 4 MG TAB PO PRN ×2 (04:27→08:30)
[2019-02-07] MEDS: ONDANSETRON 4 MG/2 ML VIAL IVP PRN (04:31)
[2019-02-07] MEDS: TRANEXAMIC ACID 650 MG TAB PO SCH (05:56)
--- NOTE | 2019-02-07 07:33 | SOAPPROG ---
SOAP Progress Note Assessment/Plan: Assessment: s/p right JAMIE, anterior approach, BARRON assist - POD 1 Anemia - expected initially post-op, asymptomatic, continue to monitor Plan: Continue d/c planning - patient doing better than expected; she will likely discharge home today, will have support from and sister WBAT ROM as tolerated, anterior total hip precautions Home PT with shutdown planner DVT precautions reviewed - aspirin 81 mg BID F/U at two weeks with Dr. Nelson Seek attention for increasing pain, swelling or other focal complaint Subjective: Patient states her right hip pain is mild and tolerable. She vomited earlier this morning, but feels better at this time. States she feels well enough to go home today. She denies SOB, CP, fever, chills, numbness, tingling. Objective: Vital Signs Temp Pulse Resp BP Pulse Ox 36.6 C 63 18 96/58 L 94 02/07/19 07:26 02/07/19 07:26 02/07/19 07:26 02/07/19 07:26 02/07/19 07:26 Laboratory Results 02/07/19 04:18 02/06/19 02/07/19 02/08/19 05:59 05:59 05:59 Intake Total 3400 Output Total 1500 Balance 1900 Patient resting in bed, no acute distress. Right hip wound dressings are clean, dry and intact. AMBAR drain has been removed. Mild diffuse edema. No erythema, purulent drainage or signs of infection. Lower leg compartments are soft and nontender. Negative Louis's sign bilaterally. Motor intact at EHL, FHL, tibialis anterior, gastric and soleus. Toes are warm and pink. Capillary refill < 2-3 seconds in all toes. Intact to light touch distally. ICD10 Worksheet Patient Problems: Problems Problem Status Onset Unilateral primary osteoarthritis, right hip Acute Hip arthritis Acute Hip arthritis Acute
--- NOTE | 2019-02-07 08:19 | PDDCSUM ---
Discharge Summary Discharge Summary: ADMIT DIAGNOSIS: Right hip degenerative joint disease DISCHARGE DIAGNOSIS: Right hip degenerative joint disease NAME OF PROCEDURE: Right total hip arthroplasty, anterior approach, MAKOplasty robotic assist HPI: The patient is a 68 year old female who has end-stage arthritis of her right hip. Clinical and radiographic features are consistent with this. Patient has failed attempts at conservative management, therefore, recommended operative right total hip replacement. HOSPITAL COURSE: Patient was admitted to the hospital floor after uncomplicated right total hip arthroplasty, anterior approach, MAKOplasty robotic assist. Patient tolerated the procedure well and had no additional complications. Patient was started on aspirin 81 mg BID, SCDs, ALBERT hose for VTE prophylaxis. Patient also participated with PT and OT. On the morning of POD 1, she is doing better than expected. The most recent H&H was 10.5/30.7. At the time of discharge, patient is tolerating an oral diet, pain is well controlled on oral medications, and is voiding without difficulty. Dressing is clean, dry and intact. There is no swelling or calf tenderness. Patient has intact plantarflexion, dorsiflexion, EHL function. X-rays demonstrate anatomic positioning with no fracture or lucency. DISCHARGE ACTIVITY: Patient is WBAT and can perform ROM as tolerated. Anterior total hip precautions are to be followed. Patient was instructed to keep dressing clean, dry and intact. Patient is to seek attention for increasing redness, swelling, drainage or discharge. DISCHARGE MEDICATIONS: oxycodone 5 mg 1-2 every 3 hours prn pain, cyclobenzaprine 10 mg PO every 8 hours prn spasm, Zofran 4 mg orally disintegrating tablet every 8 hours prn nausea, aspirin 81 mg PO twice daily. FOLLOW-UP: Follow up in 2 weeks. Again, patient is to seek attention for increasing redness, swelling, drainage or discharge.
--- NOTE | 2019-02-07 08:19 | PDIAF ---
- Diagnosis Diagnosis: right hip djd Code Status: Full Code - Medication Management Discharge Medications: electronically signed and located in the Home Medication List. - Orders Services needed: Home Care, Physical Therapy Home Care Face to Face: I certify that this patient was under my care and that I had the required [id number] encounter meeting the encounter requirements on the discharge day. My findings support the fact that the patient is homebound as defined in Home Care Face to Face Continued: CMS Chapter 7 Medicare Benefits Manual 30.1.1 , The condition of the patient is such that there exists a normal inability to leave home and consequently, leaving home would require a considerable and taxing effort. Diet Recommendation: no restrictions on diet Diet Texture: Regular Texture Diet Additional Instructions: TOTAL JOINT ARTHROPLASTY DISCHARGE INSTRUCTIONS 1. Your surgeon follows the [facility] protocol for reducing your risk of DVT (blood clots) following surgery. Medication will be ordered to prevent blood clots. A sudden increase in calf pain and/or swelling could indicate a blood clot in your leg. If this occurs, please call your surgeon or his/her certified surgical first assistant. An ultrasound of the leg may be necessary to diagnose a blood clot. If you have conditions that make you a higher risk for blood clots, your surgeon may use more aggressive ways to prevent them. Notify your surgeon if you think you are a high risk for blood clots. 2. Wear your white surgical stockings (ALBERT hose) for 2 weeks. This decreases your swelling and may help prevent blood clots. It is ok to remove ALBERT hose at night time to give your legs a break. 3. Swelling and bruising in the surgical leg is common. If you feel that it is excessive, please notify your surgeon. 4. Elevate your surgical leg with the ankle above the hip several times every day. Please keep the leg straight when you elevate by putting pillows under your foot. Do not put pillows under your knee. This will make being able to fully straighten more difficult. This is uncomfortable, but try to do it as much as possible. 5. For total knee replacements use compressive wrap on your knee for 3-5 days after surgery, then you can discontinue it. 6. Use a walker or crutches for 1-2 weeks. Progress your weight-bearing as tolerated. You may start to use a cane when you feel stable and safe. 7. You will receive physical therapy instructions in the hospital. Continue those exercises at home. There are additional exercises in the total joint booklet you were given before surgery. Outpatient physical therapy will begin 7- 10 days after surgery. Please schedule this in advance. 8. Use ice on your knee at least 3-5 times every day for 30 minutes. This helps reduce pain and swelling. Also use it at night before falling asleep. 9. Leave your surgical dressing in place for 2 weeks. Your dressing is water resistant, but not waterproof. Cover it with Saran Wrap or [id number]-[id number] before showering. You may shower as soon as you feel safe entering a shower. If you notice bleeding from your incision 2 or 3 days after surgery, please notify your surgeon. 10. Due to narcotics, decreased activity and altered diet, most patients experience constipation after surgery. Use [id number] stool softeners while you are on narcotics. 11. You may drive a car when you are comfortable bearing weight, have good muscular control of your leg and are off narcotics. This usually occurs 2-4 weeks after surgery, depending on which leg was operated on. 12. If there are questions not addressed here, please refer the [facility] book given for more information. If you still have questions, please contact your surgeon s office. 13. If you have a life-threatening emergency, please call 911 and go to the emergency room immediately. For non-life threatening emergencies, please call your physicians office for advice before going to the emergency room. - Follow Up Care Current Providers and Referrals: Michael Toscano MD [Primary Care Provider] - Juan Antonio Nelson MD [Medical Doctor] - follow up in 2 weeks
[2019-02-07] MEDS: FAMOTIDINE 20 MG TAB PO SCH (08:29)
[2019-02-07] MEDS: SENNOSIDES/DOCUSATE SODIUM TAB PO SCH (09:00)
[2019-02-07] MEDS: ASPIRIN 81 MG CHEWABLE TAB PO SCH (09:00)
--- NOTE | 2019-02-07 09:47 | ASMTCMCOM ---
CM Note CM Note Notes: Pt had planned OA of hip. Pt resides with spouse and sister will assist in recovery. PT rec home care. Pt wants PT, she requests [facility] who she had after her last ortho surgery. Parvin at [facility] alerted. Pt d/c address/phone verified. Date Signed: 02/07/2019 09:46 AM Electronically Signed By:KATHRYN Carlos
[2019-02-07] MEDS ORDERED: PROMETHAZINE HCL 25 MG TAB PO PRN (10:25)
[2019-02-07 11:39] VITALS: BP 106/70
--- NOTE | 2019-02-07 14:22 | ASMTLACE ---
LACE Length of stay for Answers: 1 day current admission Acuity / Level of Answers: Yes Care: Did the patient have an inpatient admission? Comorbidities - select Answers: Opioid dependence all that apply / Chronic pain # of Emergency department Answers: 0 visits in the last 6 months Score: 8 Date Signed: 02/07/2019 02:21 PM Electronically Signed By:KATHRYN Carlos
--- NOTE | 2019-02-07 14:23 | ASMTCMCOM ---
CM Note CM Note Notes: Pt declines assistance with setting up a follow up appointment with [facility] PCP [place], reports she will follow up with harini CANCINO. Date Signed: 02/07/2019 02:22 PM Electronically Signed By:KATHRYN Carlos
--- NOTE | 2019-02-07 15:47 | ASDISCHSUM ---
Discharge Information Plan Status:Home with Home Health Medically Cleared to Leave: Discharge Date:02/07/2019 03:31 PM CM D/C Disposition: ADT D/C Disposition:Home Health Service Projected Discharge Date:02/07/2019 11:00 AM Transportation at D/C: Discharge Delay Reason: Follow-Up Date:02/07/2019 11:00 AM Discharge Slot: Final Diagnosis: Placement Information Referral Type:*Home Health Care Services Referral ID:[facility]-[id number] Provider Name:[facility] Address 1:[address] Address 2: City:[place] Selection Factors: State:[place] Patient Contact Information Contact Name:ALOK Relationship: [address] Work Phone: City:[place] Alternate Phone: State/Zip Code:[place] [address] Email: Financial Information Financial Class:Medicare Primary Plan Desc:MEDICARE INPATIENT Primary Plan Number:[id number] Secondary Plan Desc:[employer]/MDR SUPPLEMENT Secondary Plan Number:[id number] Assessment Information LACE LACE Length of stay for Answers: 1 day current admission Acuity / Level of Answers: Yes Care: Did the patient have an inpatient admission? Comorbidities - select Answers: Opioid dependence all that apply / Chronic pain # of Emergency department Answers: 0 visits in the last 6 months Score: 8 Date Signed: 02/07/2019 02:21 PM Electronically Signed By:KATHRYN Carlos [facility] CM Progress Note CM Note CM Note Notes: Pt had planned OA of hip. Pt resides with spouse and sister will assist in recovery. PT rec home care. Pt wants PT, she requests [facility] who she had after her last ortho surgery. Parvin at [facility] alerted. Pt d/c address/phone verified. Date Signed: 02/07/2019 09:46 AM Electronically Signed By:KATHRYN Carlos [facility] CM Progress Note CM Note CM Note Notes: Pt declines assistance with setting up a follow up appointment with [facility] PCP [place], reports she will follow up with ortho . Date Signed: 02/07/2019 02:22 PM Electronically Signed By:KATHRYN Carlos Intervention Information
--- NOTE | 2019-02-09 06:48 | GOP ---
[f rep st] OPERATIVE REPORT DATE OF OPERATION: 02/06/2019 SURGEON: Juan Antonio Nelson MD BAG MACHINE TENDER: Michael iEd, SH[employer], [facility]. assistant prosecuting attorney was medically necessity for the entirety of the case. PREOPERATIVE DIAGNOSIS: Right hip degenerative joint disease. POSTOPERATIVE DIAGNOSIS: Right hip degenerative joint disease. PROCEDURE PERFORMED: Right total hip arthroplasty. FINDINGS: SPECIMENS: To Pathology, the femoral head. ESTIMATED BLOOD LOSS: 250 cc. INDICATIONS: The patient is a 68-year-old woman who presents for elective right total hip arthroplas ty. She is known to me for previous left total hip arthroplasty. She has end-stage arthritis. Radi ographic features are consistent with this. She has failed all attempts at conservative management. I have therefore recommended operative intervention. I have outlined the surgical procedure, risks, benefits, alternatives. She wished to proceed. Written consent was signed [facility] DESCRIPTION OF PROCEDURE: The patient was identified in the preanesthesia area. The right hip clear ly demarcated as the operative site with an indelible marker. She was given 2 g of Ancef intravenous ly en route to the operative suite. In the OR, spinal anesthetic was placed. She was positioned in the supine position. The pelvis and both lower extremities were sterilely prepped and draped in the usual fashion. Appropriate time-out procedure was carried out. Attention was first turned to the le ft hemipelvis. 3 pins were then placed in the iliac crest and the pelvic reference array affixed. A ttention was then turned to the right hip. An anterior approach was made. Thick subcutaneous flaps were elevated. The tensor fascia was opened and the tensor retracted laterally. The underlying vasc ular structures were cauterized and transected. The rectus elevated off the anterior capsule. Retra ctors were placed into an extracapsular position. T-capsulotomy was made. The retractors were posit ioned into an intracapsular position. An acetabular checkpoint was placed. A bony wedge was withdra wn from the femoral neck, as was the remnants of the head. The soft tissue around the socket was the n sharply excised. The bony landmarks were entered into the computer using the [employer] software. Resections were made for with the acetabular reamer for a size 56 mm reamer with an opening angle of 40 degrees and anteversion of 20 degrees. A 56 mm acetabular shell was impacted, confirmed to be fu lly seated. A 0-degree X3 liner was then placed, confirmed to be fully seated. Attention was turned to the femur. This was delivered through the use of soft tissue releases and elevation. The proxim al canal was opened. Serial broaching carried out to a size 6 stem. Trial reduction with 127-degree neck angle hip stem size 6 was placed and ultimately a 36 mm +7.5 mm neck length ceramic head was se lected. The trial stem was withdrawn after intraoperative fluoroscopy confirmation. The final stem was then seated, confirmed to be appropriately positioned. Additional trialing carried out and a 36 mm +7.5 mm biologic head was placed. The hip was copiously irrigated and the hip reduced. The hip w as stable. Leg lengths were equal. External rotation to 90 degrees demonstrated no subluxation. Th e wound was copiously irrigated. A 10-Kyrgyz PVC drain was placed. The fascia overlying the tensor closed using #1 Vicryl suture. The tissue was injected with joint cocktail of ropivacaine, Toradol, and epinephrine. The subcutaneous tissue closed using 2-0 Monocryl and the skin stapled. Sterile dr essings were applied. The patient was awakened, taken to recovery room in good, stable condition. TOTAL TOURNIQUET TIME: None. COMPLICATIONS: None. IMPLANTS: Adelso Trident II acetabular shell, 56 mm X3 0-degree polyethylene insert, 36 mm inner di ameter, Biolox ceramic head 36 mm +7.5 mm neck length. Accolade II 127-degree neck angle hip stem si ze 6. /[id number]/MODL
== END 2019-02-07 15:31 | disposition home health service (06) | DRG 470 ==
LOC: F3N 08:33
PROVIDERS: ADMIT Orthopaedic Surgery; ATTEND Orthopaedic Surgery
PROC: 0SR904Z Replacement of Right Hip Joint with Ceramic on Polyethylene Synthetic Substitute, Open Approach (ICD-10-PCS; principal; 2019-02-06 10:45)
DX: M16.11 Unilateral primary osteoarthritis, right hip (principal); K21.9 Gastro-esophageal reflux disease without esophagitis
CPT/HCPCS: 97116-GP; 97161-GP; 97165-GO; 97535-GO; J0171; J0690; J1885; J2250; J2405; J2704; J2795; J3010